=== PATIENT | female | born 1970 | race Caucasian/White ===

== ENCOUNTER 2020-12-23 09:25 | Outpatient (REF) | payer MEDICARE, MEDICAID, SELFPAY ==
[2020-12-23 11:23] LABS: Glucose Urine UA NEG (NEG); Leukocyte Esterase Urine NEG (NEG); Nitrite Urine NEG (NEG); Specific Gravity - Urine 1.025 (1.005-1.025); Urine Blood NEG (NEG); Urine Ketones NEG (NEG); Urine Protein TRACE MG/DL (NEG-TRACE)
[2020-12-23 11:29] LABS: Hematocrit 41.9 % (37-47); Mean Corpuscular HGB Conc 33.4 g/dl (31.0-35.0); Mean Corpuscular Hemoglobin 30.4 pg (27.0-33.0); Mean Corpuscular Volume 91.1 fL (80-98); Mean Platelet Volume 11.3 fL (9.4-12.3); Platelet Count 333 X10*3/uL (160-400); White Blood Count 5.9 X10*3/uL (4.8-10.8)
[2020-12-23 11:30] LABS: Appearance Urine CLEAR; Color Urine YELLOW
[2020-12-23 11:50] LABS: Alanine Aminotransferase 17 U/L (0-31); Albumin Level 4.2 g/dL (3.5-5.0); Alkaline Phosphatase 80 U/L (39-117); Anion Gap 13 (12-20); Aspartate Amino Transferase 18 U/L (5-31); Bilirubin Total 0.6 mg/dL (0.0-1.0); Blood Urea Nitrogen 10 mg/dL (9-16); Calcium 9.1 mg/dL (8.4-10.2); Carbon Dioxide 25 mmol/L (22-29); Chloride 107 mmol/L (96-108); Cholesterol 212 mg/dL; Estimated Glomerular Filt Rate > 60; Glucose Fasting 100 mg/dL (60-99); HDL Cholesterol 42 mg/dL; LDL Cholesterol Calculated 133 mg/dl; Potassium 3.7 mmol/L (3.3-5.1); Sodium 141 mmol/L (135-145); Total Protein 7.5 g/dL (6.5-8.0); Triglycerides 186 mg/dL
[2020-12-23 11:51] LABS: Bacteria Urine 1+ /LPF; RBC Urine 0 /HPF (0); Squamous Epithelial Cell Urine 2+ /LPF; WBC Urine 0 /HPF (0-4)
[2020-12-23 11:52] LABS: Amorphous Sediment Urine 1+ /LPF
[2020-12-23 11:53] LABS: TSH reflex Free T4 0.73 uIU/mL (0.32-4.0)
== END 2020-12-23 09:26 | disposition home or self-care (01) ==
LOC: HO.HMGCLDS 09:25
PROVIDERS: PCP Internal Medicine; Visit Provider Internal Medicine
DX: Z00.00 Encounter for general adult medical examination without abnormal findings (principal)
CPT/HCPCS: 36415; 80053; 80061; 81001; 84443; 85027

== ENCOUNTER 2022-12-30 12:04 | Outpatient (AMB) | payer OTHER, SELFPAY ==
[2022-12-30 12:08] VITALS: BP 118/70; PULSE 116; O2SAT 98; BMI 25.8
--- NOTE | 2022-12-30 12:08 | MHC.PC.OV ---
Vital Signs 12/30/22 12:08 Height 5 ft 5 in Weight 155 lb 2 oz BMI 25.8 BP 118/70 Blood Pressure Location Rt brachial Position Sitting Pulse 116 H Pulse Source Pulse Oximeter Pulse Oximetry (%) 98 Oxygen Delivery Method Room Air Intake Visit Reasons: Med review, GERD Intake Note: pt is here for a Med review on her GERD med Lansoprazole Allergies acetaminophen [Vicodin] Allergy (Unknown, Verified 12/30/22 12:12) Unknown Antibiotic Allergy (Unknown, Unverified 12/30/22 12:12) Unknown hydrocodone [Vicodin] Allergy (Unknown, Verified 12/30/22 12:12) Unknown Vicodin Allergy (Unknown, Uncoded 12/30/22 12:12) Unknown Medication List - Last Reconciled 12/30/22 by Dora Renee MD citalopram 40 mg PO DAILY dextroamphetamine-amphetamine 20 mg ER 1 cap PO DAILY dextroamphetamine-amphetamine 5 mg ER 1 cap PO QAM lansoprazole 30 mg PO DAILY Tobacco use date assessed: 12/30/22 Dental Screening Dental Screen Date: 12/30/22 Did you have a dental visit in the last 12 months?: No Did you have a dental problem in the last 6 months where you did not have access to dental care?: No Was dental information given to patient?: No HPI HPI Comments History of Present Illness Details Pt presents for PE. Pt c/o R breast lump getting larger. PFS Medical History (Updated 12/30/22 @ 12:57 by Dora Renee MD) ADHD Annual physical exam Depression Tobacco dependence Family History Father Substance use disorder Mother Bone cancer Social History Patient Tobacco Use Status: Current everyday Tobacco user Tobacco use type: Cigarette Cigarettes Per Day: 10 Years Smoked: since 19 years old e-Cigarette/Vaping Use: Former Use Second Hand Smoke Exposure: No Current occupational status: disabled Cognitive needs: No Hearing needs: No Vision needs: No Questionnaire Thrive Questionnaire Date Thrive assessed: 12/26/20 Review of Systems Const All systems reviewed & are unremarkable except as noted in HPI and below Reports no additional complaints ENT Reports no additional complaints Resp Reports no additional complaints GI Reports no additional complaints Reports no additional complaints Physical exam (Primary Care) Vital Signs: Last Vital Signs Pulse 116 H 12/30/22 12:08 BP 118/70 12/30/22 12:08 Pulse Ox 98 12/30/22 12:08 Oxygen Delivery Method Room Air 12/30/22 12:08 BMI result Body Mass Index 25.8 Tobacco/Smoking Status: Tobacco use Status Tobacco use date assessed 12/30/22 12/30/22 12:16 Patient Tobacco Use Status Current everyday Tobacco 12/30/22 12:16 Tobacco use type Cigarette 12/30/22 12:16 e-Cigarette/Vaping Use Former Use 12/30/22 12:16 Thrive Assessment: Date of Thrive Assessment Date Thrive assessed 12/26/20 12/30/22 12:16 Const General: no acute distress HENMT Head: Yes normal to inspection Face and sinus: Yes normal facial exam Mouth: Normal oral and palatal mucosa present Eyes General: appearance normal, both eyes and all related structures Neck Neck: Yes no lymphadenopathy and Yes supple Chest Breast/axilla palpation: normal palpation of the breasts (left breast), no axillary lymphadenopathy and abnormal palpation of the breast (R breast 11 oclock 1 cm mobile lump, erythema , no tenderness) Resp Effort & Inspection: normal respiratory effort Auscultation: clear to auscultation bilaterally Cardio Rhythm: regular rhythm Heart sounds: S1 normal heart sound present and S2 normal heart sound present GI Inspection: Yes normal to inspection Palpation (GI): Soft to palpation Percussion: Yes normal to percussion Auscultation: normal bowel sounds Assessment and Plan Assessment & Plan (1) Annual physical exam: Code(s): Z00.00 - Encounter for general adult medical examination without abnormal findings Plan: Well-balanced diet regular exercise discussed with the patient. Patient requested referral to marble machine tender for a pelvic exam and will be referred to GI for colonoscopy. (2) GERD (gastroesophageal reflux disease): Comment: long standing, dependent on PPI Code(s): K21.9 - Gastro-esophageal reflux disease without esophagitis Plan: Continue PPI. Patient will discuss it EGD with GI (3) Breast lump in upper outer quadrant: Comment: right breast 11 oclock Code(s): N63.0 - Unspecified lump in unspecified breast Plan: Schedule diagnostic mammogram on the right breast (4) Tobacco dependence: Comment: allergic to nicotine patches Code(s): F17.200 - Nicotine dependence, unspecified, uncomplicated Plan: Tobacco quitting discussed with the patient Orders: Orders Comprehensive [place]. Panel Fast Today Z00.00 - Encounter for general adult medical examination without abnormal findings Lipid Panel Today Z00.00 - Encounter for general adult medical examination without abnormal findings TSH reflex Free T4 Today Z00.00 - Encounter for general adult medical examination without abnormal findings Vitamin D 25-OH Total Today Z00.00 - Encounter for general adult medical examination without abnormal findings Complete Blood Count Auto Diff Today Z00.00 - Encounter for general adult medical examination without abnormal findings MM diagnostic mammo unilat RT Today N63.0 - Unspecified lump in unspecified breast MM screening mammo unilat LT Today Z12.31 - Encounter for screening mammogram for malignant neoplasm of breast UA w Microscopic Today Z00.00 - Encounter for general adult medical examination without abnormal findings Referrals [employer] Referral Z00.00 - Encounter for general adult medical examination without abnormal findings Gastroenterology Referral K21.9 - Gastro-esophageal reflux disease without esophagitis, Z00.00 - Encounter for general adult medical examination without abnormal findings Medications: Refilled lansoprazole 30 mg PO DAILY 90 caps 3RF Coding Level of Care Code Est Pt Prev Care 40-64y(09033) Diagnoses Annual physical exam Z00.00 GERD (gastroesophageal reflux disease) K21.9 Breast lump in upper outer quadrant N63.0 Tobacco dependence F17.200
== END 2022-12-30 12:58 | disposition home or self-care (01) ==
PROVIDERS: PCP Internal Medicine; Visit Provider Internal Medicine
DX: Z00.00 Encounter for general adult medical examination without abnormal findings (principal); K21.9 Gastro-esophageal reflux disease without esophagitis; N63.11 Unspecified lump in the right breast, upper outer quadrant; F17.210 Nicotine dependence, cigarettes, uncomplicated
CPT/HCPCS: 99396

== ENCOUNTER 2022-12-30 12:51 | Outpatient (REF) | payer OTHER, SELFPAY ==
[2022-12-30 16:28] LABS: MANUAL DIFF FLAG NO
[2022-12-30 16:37] LABS: Basophils Absolute Auto 0.1 X10*3/uL (0.0-0.2); Basophils Percent Auto 1.5 % (0-2); Eosinophils Absolute Auto 0.3 X10*3/uL (0.0-0.4); Hematocrit 45.3 % (37.0-47.0); Hemoglobin 14.7 g/dl (12.0-16.0); Imm Gran Abs Auto 0.04 X10*3/uL (0.00-0.03); Imm Gran Pct Auto 0.6 % (0.0-0.4); Lymphocytes Absolute Auto 1.5 X10*3/uL (1.2-4.9); Mean Corpuscular HGB Conc 32.5 g/dl (31.0-35.0); Mean Corpuscular Hemoglobin 34.5 pg (27.0-33.0); Mean Corpuscular Volume 106.3 fL (80.0-98.0); Mean Platelet Volume 12.9 fL (9.4-12.3); Monocytes Absolute Auto 0.7 X10*3/uL (0.1-1.2); Monocytes Percent Auto 9.5 % (2-11); Neutrophils Absolute Auto 4.7 x10*3/uL (2.0-8.3); Neutrophils Percent Auto 64.4 % (45-73); Platelet Count 408 X10*3/uL (160-400); Red Blood Count 4.26 X10*6/uL (4.20-5.50); Red Cell Distribution Width 14.4 % (11.0-16.0); White Blood Count 7.2 X10*3/uL (4.8-10.8)
[2022-12-30 17:01] LABS: Alanine Aminotransferase 144 U/L (0-31); Albumin Level 4.2 g/dL (3.5-5.0); Alkaline Phosphatase 141 U/L (39-117); Anion Gap 18 (12-20); Aspartate Amino Transferase 231 U/L (5-31); Bilirubin Total 1.1 mg/dL (0.0-1.0); Blood Urea Nitrogen 8 mg/dL (9-16); Calcium 10.2 mg/dL (8.4-10.2); Carbon Dioxide 24 mmol/L (22-29); Chloride 101 mmol/L (96-108); Cholesterol 292 mg/dL; Estimated Glomerular Filt Rate > 60; Glucose Fasting 97 mg/dL (60-99); HDL Cholesterol 39 mg/dL; LDL Cholesterol Calculated 189 mg/dl; Potassium 4.1 mmol/L (3.3-5.1); Sodium 139 mmol/L (135-145); Total Protein 8.5 g/dL (6.5-8.0); Triglycerides 324 mg/dL
[2022-12-30 17:07] LABS: Appearance Urine Turbid; Bacteria Urine 4+ (None Seen); Color Urine Orange; Glucose Urine UA Negative (Negative); Leukocyte Esterase Urine Small (1+) (Negative); Nitrite Urine Positive (Negative); PH 5.5 (5.0-9.0); Specific Gravity - Urine >= 1.030 (1.005-1.025); Squamous Epithelial Cell Urine >20 /HPF (0-2); UMIC TRIGGER UA YES; Urine Blood Negative (Negative); Urine Ketones Negative (Negative); Urine Protein 30 (1+) mg/dL (Neg-Trace); WBC Urine 0-5 /HPF (0-5)
[2022-12-30 17:17] LABS: Vitamin D 25-OH Total 15.6 ng/mL (>30)
== END 2022-12-30 12:52 | disposition home or self-care (01) ==
LOC: HO.HMGCLDS 12:51
PROVIDERS: PCP Internal Medicine; Visit Provider Internal Medicine
DX: Z00.00 Encounter for general adult medical examination without abnormal findings (principal)
CPT/HCPCS: 36415; 80053; 80061; 81001; 82306; 84443; 85025

== ENCOUNTER 2025-05-10 10:41 | Outpatient (AMB) | payer OTHER, SELFPAY ==
[2025-05-10 11:16] VITALS: BP 120/70; PULSE 112; RESP 18; TEMP 36.7; O2SAT 99; BMI 24.1
--- NOTE | 2025-05-10 11:16 | A.OFFPC_ITS ---
Vital Signs 05/10/25 11:16 Height 5 ft 5 in Weight 145 lb BMI 24.1 BP 120/70 Blood Pressure Location Rt brachial Position Sitting Respiration 18 Pulse 112 H Pulse Source Pulse Oximeter Temp 98.0 F Temp Source Oral Pulse Oximetry (%) 99 Oxygen Delivery Method Room Air Intake Visit Reasons: Panic Attacks/Anxiety Intake Note: Pt is here today for a sick visit. Pt c/o panic attacks and anxiety. Pt has not been seen since 2022. Allergies acetaminophen (Vicodin) Allergy (Unknown, Verified 05/10/25 11:35) Unknown Antibiotic Allergy (Unknown, Unverified 05/10/25 11:35) Unknown hydrocodone (Vicodin) Allergy (Unknown, Verified 05/10/25 11:35) Unknown Vicodin Allergy (Unknown, Uncoded 05/10/25 11:35) Unknown Medication List - Last Reconciled 05/10/25 by Dora Renee MD citalopram 40 mg PO DAILY lansoprazole 30 mg PO DAILY Tobacco use date assessed: 05/10/25 Dental Screening Dental Screen Date: 05/10/25 Did you have a dental visit in the last 12 months?: No Did you have a dental problem in the last 6 months where you did not have access to dental care?: No Was dental information given to patient?: Patient declined HPI Panic Attacks/Anxiety HPI Details Pt presents complaining of worsening of chronic lower back pain for 4 days exacerbated by bending over, getting up from a chair, radiating to both legs on an off. Patient denies weakness in extremities, change bladder or bowel function. Patient complains of chronic nausea worse when stressed out. She denies nausea after eating, vomiting or abdominal pain, change in appetite. The patient reports frequent but formed bowel movements and denies hematochezia melena or stool incontinence. Patient is established with a psychiatrist for chronic anxiety and depression and has been taking citalopram. Patient denies suicide ideation change in the sleep pattern or appetite. [facility] Medical History (Updated 05/10/25 @ 12:23 by Dora Renee MD) History of alcohol abuse Tobacco dependence ADHD Depression Annual physical exam Surgical History (Updated 05/10/25 @ 11:41 by REMIGIO Moore) No pertinent past surgical history Family History Father Substance use disorder Mother Bone cancer Social History Housing: Apartment Patient Tobacco Use Status: Current everyday Tobacco user Tobacco use type: Cigarette Cigarettes Per Day: 2 Years Smoked: since 19 years old e-Cigarette/Vaping Use: Former Use Second Hand Smoke Exposure: No service: No Current occupational status: disabled Cognitive needs: No Hearing needs: No Vision needs: No Questionnaire Thrive Questionnaire Date Thrive assessed: 12/26/20 Review of Systems Const All systems reviewed & are unremarkable except as noted in HPI and below Reports no additional complaints Eyes Reports no additional complaints ENT Reports no additional complaints Card Reports no additional complaints Resp Reports no additional complaints GI Reports no additional complaints Reports no additional complaints Musc Reports no additional complaints Physical exam (Primary Care) Vital Signs: Last Vital Signs Temp 98.0 F 05/10/25 11:16 Pulse 112 H 05/10/25 11:16 Resp 18 05/10/25 11:16 BP 120/70 05/10/25 11:16 Pulse Ox 99 05/10/25 11:16 Oxygen Delivery Method Room Air 05/10/25 11:16 BMI result Body Mass Index 24.1 Tobacco/Smoking Status: Tobacco use Status Tobacco use date assessed 05/10/25 05/10/25 11:43 Patient Tobacco Use Status Current everyday Tobacco 05/10/25 11:17 Tobacco use type Cigarette 05/10/25 11:17 e-Cigarette/Vaping Use Former Use 05/10/25 11:17 Thrive Assessment: Date of Thrive Assessment Date Thrive assessed 12/26/20 05/10/25 11:17 Const General: no acute distress HENMT Head: Yes normal to inspection Face and sinus: Yes normal facial exam Eyes General: appearance normal, both eyes and all related structures Neck Neck: Yes no lymphadenopathy and Yes supple Resp Effort & Inspection: normal respiratory effort Auscultation: clear to auscultation bilaterally Cardio Rhythm: regular rhythm Heart sounds: S1 normal heart sound present and S2 normal heart sound present GI Inspection: Yes normal to inspection Palpation (GI): Soft to palpation and nontender Percussion: Yes normal to percussion Auscultation: normal bowel sounds Back/Spine/Pelvis Other: There is a lower lumbar spinal paraspinal tenderness, straight leg rising 45 degrees bilaterally. Deep tendon reflexes 2+ bilaterally, strength 5/5 bilaterally Extrem General: Yes no clubbing, cyanosis or edema Coding Level of Care Code Est Pt Level 4 (27933) Diagnoses Sciatica M54.30 Annual physical exam Z00.00 Vitamin D deficiency E55.9 Elevated LFTs R79.89 Depression F32.9 Assessment & Plan Assessment & Plan (1) Sciatica: Code(s): M54.30 - Sciatica, unspecified side Category: Medical Plan: For current sciatica obtain x-ray of lumbar spine, prednisone taper a=s prescribed and PT was recommended but patient declined (2) Annual physical exam: Code(s): Z00.00 - Encounter for general adult medical examination without abnormal findings Category: Medical Plan: Patient will be referred to GI for colonoscopy mammogram will be scheduled. She will return for Pap smear. Fasting blood work will be obtained today (3) Vitamin D deficiency: Code(s): E55.9 - Vitamin D deficiency, unspecified Category: Medical Plan: Check vitamin-D level (4) Elevated LFTs: Code(s): R79.89 - Other specified abnormal findings of blood chemistry Category: Medical Plan: For chronic elevation of liver function tests obtain abdominal ultrasound to rule out liver cirrhosis or gallstones. (5) Depression: Comment: f/u psychiatryMarily Code(s): F32.9 - Major depressive disorder, single episode, unspecified Category: Medical Plan: Follow-up with psychiatry Orders: Orders XR lumbar spine 2-3V Today M54.30 - Sciatica, unspecified side Vitamin D 25-OH Total Today E55.9 - Vitamin D deficiency, unspecified, Z00.00 - Encounter for general adult medical examination without abnormal findings US abdomen complete Today R74.8 - Abnormal levels of other serum enzymes MM screening mammo BI Today Z12.31 - Encounter for screening mammogram for malignant neoplasm of breast Comprehensive [place]. Panel Fast Today E55.9 - Vitamin D deficiency, unspecified, Z00.00 - Encounter for general adult medical examination without abnormal findings Complete Blood Count Auto Diff Today E55.9 - Vitamin D deficiency, unspecified, Z00.00 - Encounter for general adult medical examination without abnormal findings Lipid Panel Today E55.9 - Vitamin D deficiency, unspecified, Z00.00 - Encounter for general adult medical examination without abnormal findings Vitamin B12 and Folate Today E55.9 - Vitamin D deficiency, unspecified, Z00.00 - Encounter for general adult medical examination without abnormal findings TSH reflex Free T4 Today E55.9 - Vitamin D deficiency, unspecified, Z00.00 - Encounter for general adult medical examination without abnormal findings UA w Microscopic Today E55.9 - Vitamin D deficiency, unspecified, Z00.00 - Encounter for general adult medical examination without abnormal findings XR chest 1V Today R05.9 - Cough, unspecified Urine Culture Today R30.0 - Dysuria Referrals Gastroenterology Referral Z00.00 - Encounter for general adult medical exami [facility] without abnormal findings Medications: New prednisone Four tablets p.o. q.d. for 3 days then 3 tablets p.o. q.d. for 3 days then 2 tablets p.o. q.d. for 3 days then 1 tablet p.o. q.d. for 3 days 10 mg PO DAILY 30 tabs 0RF Refilled lansoprazole 30 mg PO DAILY 90 caps 3RF
== END 2025-05-10 12:27 | disposition home or self-care (01) ==
LOC: HO.HMCC 10:41
PROVIDERS: PCP Internal Medicine; Visit Provider Internal Medicine
DX: M54.30 Sciatica, unspecified side (principal); Z00.00 Encounter for general adult medical examination without abnormal findings; E55.9 Vitamin D deficiency, unspecified; R79.89 Other specified abnormal findings of blood chemistry; F32.9 Major depressive disorder, single episode, unspecified

== ENCOUNTER → 2025-05-10 10:41 | Outpatient (BNVA) | payer OTHER, SELFPAY | PROVIDERS: PCP Internal Medicine; Visit Provider Internal Medicine | DX: Z00.00 Encounter for general adult medical examination without abnormal findings (principal); M54.30 Sciatica, unspecified side; E55.9 Vitamin D deficiency, unspecified; R79.89 Other specified abnormal findings of blood chemistry; F32.9 Major depressive disorder, single episode, unspecified | CPT/HCPCS: 99212 ==